=== PATIENT | female | born 1985 | race Caucasian/White ===

== ENCOUNTER → 2021-03-16 | Day surgery (SDC) | payer OTHER ==
[~2021-03-16] VITALS: Ht 162.6 cm; Wt 55.3 kg
[~2021-03-16] MED LIST: COLACE100 MG PO; IBUPROFEN800 M1 PO; JENCYCLA0.35 MG PO; PERCOCET 5-3251 EACH PO; ZOFRAN4 M1 PO
[2021-03-16 10:26] LABS: HCG (URINE) SCREEN NEGATIVE (NEGATIVE)
[2021-03-16 10:33] LABS: HCT 43.6 % (37.0-47.0); HGB 14.6 g/dl (12.5-16.0); MCH 30.2 pg (25.0-31.0); MCHC 33.5 g/dL (32.0-36.0); MCV 90.3 fL (78.0-100.0); MPV 9.5 fL (6.0-9.5); RBC 4.83 M/uL (4.20-5.40); RDW 12.7 % (11.5-14.0); WBC 8.3 K/uL (4.0-10.5)
== END | disposition home or self-care (01) ==
LOC: FAS 09:53 → EDSTATUS 11:00
PROVIDERS: Obstetrics & Gynecology
DX: N87.9 Dysplasia of cervix uteri, unspecified (principal); N72 Inflammatory disease of cervix uteri; N88.8 Other specified noninflammatory disorders of cervix uteri; N93.9 Abnormal uterine and vaginal bleeding, unspecified; N92.1 Excessive and frequent menstruation with irregular cycle; R68.82 Decreased libido; F32.9 Major depressive disorder, single episode, unspecified; F17.210 Nicotine dependence, cigarettes, uncomplicated; Z79.899 Other long term (current) drug therapy
CPT/HCPCS: 36415; 84703; 86850; 86900; 86901; J0690; J1100; J1885; J2001; J2250; J2405; J2704; J2710; J3010; J7120